=== PATIENT | male | born 1985 ===

== ENCOUNTER 2017-01-05 20:21 | Emergency (ER) | payer OTHER ==
[2017-01-05 20:44] VITALS: BP 117/75; PULSE 85; RESP 20; TEMP 98.3; O2SAT 97
--- NOTE | 2017-01-05 20:58 | C.PDOC ---
History Of Present Illness A 31 year old male, presents to the emergency department requesting a medication refill. The patient states he ran out of his medication today and he went to his pharmacy, but they were closed due to the holiday weekend. The patient is completely asymptomatic and denies any suicidal ideation, homicidal ideation, or any other complaints at this time. Time Seen by Provider: 01/05/17 20:43 Chief Complaint (Nursing): Med Refill History Per: Patient History/Exam Limitations: no limitations Onset/Duration Of Symptoms: Other Past Medical History Vital Signs: Last Vital Signs Temp 98.3 F 01/05/17 20:31 Pulse 85 01/05/17 20:31 Resp 20 01/05/17 20:31 BP 117/75 01/05/17 20:31 Pulse Ox 97 01/05/17 21:06 - Medical History PMH: Seizures Family History: States: No Known Family Hx, Unknown Family Hx - Social History Hx Alcohol Use: No Hx Substance Use: No - Immunization History Hx Tetanus Toxoid Vaccination: No Hx Influenza Vaccination: No Hx Pneumococcal Vaccination: No Review Of Systems Except As Marked, All Systems Reviewed And Found Negative. Constitutional: Negative for: Fever Cardiovascular: Negative for: Chest Pain Respiratory: Negative for: Shortness of Breath Gastrointestinal: Negative for: Abdominal Pain Psych: Negative for: Suicidal ideation Physical Exam - Physical Exam Appears: Well, Non-toxic, No Acute Distress Skin: Normal Color, Warm, Dry Head: Atraumatic, Normacephalic Eye(s): bilateral: Normal Inspection, EOMI Nose: Normal Oral Mucosa: Moist Neck: Normal, Normal ROM, Supple Chest: Symmetrical Cardiovascular: Rhythm Regular Respiratory: Normal Breath Sounds Back: Normal Inspection Extremity: Normal ROM Neurological/Psych: Oriented x3, Normal Speech, Normal Cognition ED Course And Treatment O2 Sat by Pulse Oximetry: 97 Medical Decision Making Medical Decision Making: Treatment Plan: -- Klonopin, Keppra RX bottles evaluated. Pt has 2 refills of medication. Last filled on 12/05/16. Disposition - Disposition Referrals: Vivian Richey [Primary Care Provider] - Disposition: HOME/ ROUTINE Disposition Time: 20:56 Condition: STABLE Prescriptions: clonazePAM [clonAZEPAM] 0.5 mg PO BID #4 tab Levetiracetam [Keppra] 500 mg PO BID #6 tablet Instructions: Medicine Refill (ED) Forms: [facility] (Martiniquais) - Clinical Impression Clinical Impression: Review of medication - Scribe Statement The provider has reviewed the documentation as recorded by the Scribe Mahi Ochoa All medical record entries made by the Scribe were at my direction and personally dictated by me. I have reviewed the chart and agree that the record accurately reflects my personal performance of the history, physical exam, medical decision making, and the department course for this patient. I have also personally directed, reviewed, and agree with the discharge instructions and disposition.
== END 2017-01-05 21:08 | disposition home or self-care (01) ==
LOC: C.ER 20:21 → SUPCPDRO 20:21 → C.ER 21:08
DX: Z51.81 Encounter for therapeutic drug level monitoring (principal)

== ENCOUNTER 2017-08-11 10:07 | Inpatient (IN) | payer MEDICAID, OTHER ==
[2017-08-11 10:23] VITALS: O2SAT 99
[2017-08-11 12:40] LABS: BASO # 0.1 K/uL (0.0-0.2); BASO % 0.9 % (0.0-2.0); EOS # 0.1 K/uL (0.0-0.7); EOS % 1.5 % (0.0-4.0); HEMOGLOBIN 14.5 g/dL (12.0-18.0); LYMPH # 2.8 K/uL (1.0-4.3); LYMPH % 30.8 % (20.0-40.0); MEAN CELL VOLUME 77.6 fL (80.0-94.0); MEAN CORPUSCULAR HEMOGLOBIN 26.4 pg (27.0-31.0); MEAN PLATELET VOLUME 7.3 fL (7.2-11.7); MONO # 0.4 K/uL (0.0-0.8); MONO % 4.5 % (0.0-10.0); NEUT # 5.7 K/uL (1.8-7.0); NEUT % 62.3 % (50.0-75.0); RBC 5.48 Mil/uL (4.40-5.90); RED CELL DISTRIBUTION WIDTH 13.1 % (11.5-14.5); WHITE BLOOD COUNT 9.2 K/uL (4.8-10.8)
--- NOTE | 2017-08-11 12:48 | C.PDOC ---
History Of Present Illness 32 year old male, whose PMHx includes seizures (reports noncompliant with Keppra ), is brought to the ED by ambulance for evaluation after having a seizure this morning. Patient also reports auditory hallucinations and suicidal ideation, stating he has thoughts of hurting himself. Patient denies suicidal plan and is not providing specific details when questioned. He denies tongue biting and urinary/bowel incontinence. Time Seen by Provider: 08/11/17 11:38 Chief Complaint (Nursing): Psychiatric Evaluation History Per: Patient History/Exam Limitations: no limitations Onset/Duration Of Symptoms: Mins Current Symptoms Are (Timing): Better Associated Symptoms: Suicidal Thoughts. denies: Suicidal Plan Involuntary Hold By: None Recent travel outside of the [place]: No Additional History Per: Patient Past Medical History Reviewed: Historical Data, Nursing Documentation, Vital Signs Vital Signs: Last Vital Signs Temp 97.9 F 08/11/17 15:12 Pulse 99 H 08/11/17 15:12 Resp 16 08/11/17 15:12 BP 126/78 08/11/17 15:12 Pulse Ox 99 08/11/17 15:13 - Medical History PMH: Seizures Surgical History: No Surg Hx Family History: States: Unknown Family Hx - Social History Hx Alcohol Use: No Hx Substance Use: No - Immunization History Hx Tetanus Toxoid Vaccination: No Hx Influenza Vaccination: No Hx Pneumococcal Vaccination: No Review Of Systems Genitourinary: Negative for: Incontinence Neurological: Positive for: Seizures Psych: Positive for: Suicidal ideation, Other (auditory hallucinations) Physical Exam - Physical Exam Appears: Non-toxic, No Acute Distress Skin: Normal Color, Warm, Dry Head: Atraumatic, Normacephalic Eye(s): bilateral: Normal Inspection Oral Mucosa: Moist Neck: Supple Chest: Symmetrical, No Deformity, No Tenderness Cardiovascular: Rhythm Regular, No Murmur Respiratory: Normal Breath Sounds, No Rales, No Rhonchi, No Wheezing Extremity: Normal ROM, Capillary Refill (less than 2 seconds ) Neurological/Psych: Oriented x3, Normal Speech, Normal Cognition, Other (flat, bizarre affect) ED Course And Treatment - Laboratory Results Result Diagrams: 08/11/17 12:37 08/11/17 12:37 ECG: Interpreted By Me, Viewed By Me ECG Rhythm: Sinus Rhythm Interpretation Of ECG: Normal Sinus Rhythm at rate 94bpm. Normal intervals. Normal [place]. Isoltated T-wave inversion in lead III. Rate From EC O2 Sat by Pulse Oximetry: 99 (on RA) Pulse Ox Interpretation: Normal Medical Decision Making Medical Decision Making: Assessment: seizure, suicidal ideation, auditory hallucinations Plan: * Bloodwork * Urinalysis * Keppra IVP * reassess and disposition Progress: Bloodwork and urinalysis ordered and reviewed. Keppra IVP administered. Patient placed on one-to-one ED observation. 1446: Patient has been medically cleared. No further seizure activity noted during course of ED stay. Patient was evaluated by Dr. Harris and will be admitted for schizophrenia and seizures. Disposition Discussed With Dr.: Bay Harris Counseled Patient/Family Regarding: Studies Performed, Diagnosis - Disposition Disposition: HOSPITALIZED Disposition Time: 14:51 Condition: FAIR - Clinical Impression Clinical Impression: Schizophrenia, Seizure - Scribe Statement The provider has reviewed the documentation as recorded by the Scribe (Cara Valdez) Provider Attestation: All medical record entries made by the Scribe were at my direction and personally dictated by me. I have reviewed the chart and agree that the record accurately reflects my personal performance of the history, physical exam, medical decision making, and the department course for this patient. I have also personally directed, reviewed, and agree with the discharge instructions and disposition.
[2017-08-11 12:54] LABS: ALB/GLOB RATIO 1.1 (1.0-2.1); ALBUMIN 4.1 g/dL (3.5-5.0); ALT/SGPT 30 U/L (21-72); AST/SGOT 32 U/L (17-59); BLOOD UREA NITROGEN 11 mg/dL (9-20); CALCIUM 9.5 mg/dl (8.6-10.4); GFR AFRICAN-AMERICAN > 60; GFR NON-AFRICAN AMERICAN > 60
[2017-08-11 13:55] LABS: SQUAMOUS EPITHIAL 1 /hpf (0-5); URINE BILIRUBIN NEGATIVE (NEGATIVE); URINE BLOOD NEGATIVE (NEGATIVE); URINE CLARITY Clear (Clear); URINE COLOR Yellow (YELLOW); URINE GLUCOSE (UA) NORMAL (Normal); URINE LEUKOCYTE ESTERASE TRACE Leu/uL (Negative); URINE PROTEIN NEGATIVE (NEGATIVE); URINE UROBILINOGEN NORMAL mg/dL (0.2-1.0)
[2017-08-11 14:26] LABS: BARBITURATES, UR NEGATIVE (NEGATIVE); OPIATES, UR NEGATIVE (NEGATIVE); PHENCYCLIDINE, UR NEGATIVE (NEGATIVE)
[2017-08-11 14:44] LABS: BENZODIAZEPINES, UR POSITIVE (NEGATIVE)
--- NOTE | 2017-08-11 16:41 | PCM.BM ---
<Karley Macdonald - Last Filed: 08/11/17 16:39> Treatment Plan Problems - Problems identified on initial assessmt Depression Date Initiated: 08/11/17 Time Initiated: 15:50 Assessment reference: NA Status: Active (Aud) Auditory Hallucinatios Date Initiated: 08/11/17 Time Initiated: 15:50 Assessment reference: NA Status: Active Treatment assets and liabiliti Patient Assests: cooperative, educated, good past tx response Patient Liabilities: financial problems, relationship conflicts ( from ), medical problems (Epilepsy, Hypertension. ), unable to read/write (Lost his job. ) - Milieu Protocol Maintain good personal hygiene: daily Encourage regular showers, every shift Remind patient to perform daily oral care, every shift Assist patient to perform ADL's Conduct patient checks and document Observation sheet: Q15 minutes (for safety.) Maintain personal safety: every shift Educate patient to report safety concerns to staff, every shift Monitor environment for contraband/sharps Medication safety: Monitor for expected outcome, potential side effects: every shift, Assess barriers to learning: every shift, Assess readiness for medication education: every shift <Bay Harris - Last Filed: 08/13/17 10:50> - Diagnosis (1) Schizophrenia Status: Acute Interventions: 08/13/17 10:50 * Assess/adjust medications daily and /or as needed * See patient on an individual basis 7x/week to assess status of hallucinations * Discuss risks, benefits, side effects and alternatives of medications * <Juana Steele - Last Filed: 08/13/17 11:40> Family Contact Family involvement: Family/SO is involved Family contact: Patient agrees to contact Family contact name: Family contacted how many times per week?: 2 - Goals for Treatment Patient goals for treatment: "I don't know." Patient's family/SO goals for treatment: "He needs medication." Discharge/Continuing Care - Education Needs Education Needs: Patient Medication, Patient Coping Skills - Discharge Discharge Criteria: Tolerates medication w/o severe side effects, Reduction of target symptoms Discharge to:: Home, With Family - Treatment Team Participation Discussed with Family/SO: Yes Was Patient/Family/SO present at Treatment Team Meeting: Yes
[2017-08-11] MEDS ORDERED: DiphenhydrAMINE 50 mg/ml Inj IM PRN (17:05)
--- NOTE | 2017-08-12 10:40 | PCM.PSYCH ---
Initial Psychiatric Evaluation - Initial Psychiatric Evaluation Type of Admission: Voluntary Legal Status: Capacity Chief Complaint (in patient's own words): I was hearing voices to kill myself.' History of Present Illness and Precipitating Events: This is a 32 y/o [place] Make, , currently living with his and 1 years old daughter, came to the ED with AH, telling him to kill himself and suicidal thoughts. According to collateral information obtained from Patient's and sister. Patient has h/o Schizophrenia paranoid type for more than 2 years. He was last discharged from the [facility], last May,. Patient was later screened and transferred to [facility]. As per the collateral he stopped taking his meds last year, soon after discharge. Since past month he is becoming increasingly paranoid and delusional. He has been pacing the floor for the past week and not sleeping for the past 2 days. In addition, patient also reports feeling confused, poor recall and unable to gather his thoughts due to current mental status. He appears very disorganized and internally preoccupied. He reports of hearing voices telling him to kill himself and seeing shadows, visual hallucinations. Patient also reports poor sleep. He remained paranoid, delusional and bizzare. He denies any history of substance abuse or alcohol abuse. PMH: h/o epilepsy, HTN and dislocated shoulder Current Medications: Active Medications Generic Name Dose Route Start Last Admin Trade Name Freq PRN Reason Stop Dose Admin Diphenhydramine HCl 25 mg 08/11/17 17:05 Benadryl IM Q4H PRN dystonia Haloperidol 5 mg 08/11/17 17:05 Haldol PO Q1H PRN agitation max 4x/24h Hydroxyzine HCl 50 mg 08/11/17 17:05 Atarax PO Q6H PRN Anxiety Ibuprofen 600 mg 08/11/17 17:05 Motrin Tab PO Q6H PRN Pain, moderate (4-7) Levetiracetam 500 mg 08/12/17 10:00 08/12/17 09:56 Keppra PO 500 mg BID ADRIENNE Administration Pneumococcal Polyvalent Vaccine 0.5 ml 08/13/17 10:00 Pneumovax 23 Vaccine SC 08/13/17 10:01 .ONCE ONE Trazodone HCl 100 mg 08/11/17 17:05 Desyrel PO HS PRN Insomnia Past Psychiatric History - Past Psychiatric History Previous Treatment History: Inpatient Pertinent Medical Hx (Current Medical&Sleep Prob, Allergies): Allergies Allergy/AdvReac Type Severity Reaction Status Date / Time No Known Allergies Allergy Verified 08/11/17 10:24 Clonazepam [Klonopin] 0.5 mg PO HS 01/05/17 Levetiracetam [Keppra] 500 mg PO BID #6 tablet 01/05/17 Review of Systems - Review of Systems All systems: reviewed and no additional remarkable complaints except - Psychiatric Psychiatric: Anxiety, Hallucinations, Irritability, Paranoia, Suicidal Ideation Mental Status Examination - Personal Presentation Personal Presentation: Looks stated age - Affect Affect: Constricted, Blunted - Motor Activity Motor Activity: Psychomotor Retardation - Reliability in Providing Information Reliability in Providing Information: Poor, due to alteration in thoughts, Poor , due to altered mood - Speech Speech: Disorganized - Mood Mood: Depressed, Anxious - Formal Thought Process Formal Thought Process: Hallucinations, Delusions, Paranoia, Loosening of associations - Hallucinations/Delusions Hallucinations: Visual, Auditory Delusions: Persecution - Obsessions/Compulsions Obsessions: No Compulsions: No - Cognitive Functions Orientation: Person, Place, Situation, Time Sensorium: Alert Attention/Concentration: Attentive Abstract Thinking: [place] Estimate of Intelligence: Below average Judgement: Imparied, as evidence by: Poor judgement, Imparied, as evidence by: Lack of insight into illness - Risk Risk: Suicidal, Diminished functioning - Strength & Assets Inventory Strength & Assets Inventory: Family support DSM 5 DX - DSM 5 DSM 5 Diagnosis: Schizophrenia paranoid type continuous - Recommended/Plan of Treatment Treatment Recommendations and Plan of Treatment: Schizophrenia paranoid type continuous -CBT -Psychoeducation -Supportive therapy, group therapy, individual therapy -Haldol 5 mg by mouth twice a day -Cogentin 1 mg PO BID -Trazodone 100 mg by mouth daily at bedtime Seizure disorder -Keppra 500 mg PO BID HTN -Monitor s/s
--- NOTE | 2017-08-12 17:12 | CARD ---
APPROVED REPORT EKG Measurement Heart [id number] DC [id number] <Conclusion> Normal sinus rhythm Normal ECG
[2017-08-13] MEDS ORDERED: Pneumococcal 23-Valent Vaccine SC ONE (10:00)
--- NOTE | 2017-08-13 10:50 | PCM.PYCHPN ---
Psychiatric Progress Note - Psychiatric Progress Note Patient seen today, length of contact: 15 min Patient Chief Complaint: I am still hearing voices.' Problems Identified/Issues Discussed: Patient seen and evaluated, chart reviewed and discussed with the nurse. Patient remained disorganized and internally preoccupied. He still reports of hearing voices. Patient still appears paranoid and delusional. He reports depressed mood and feelings of hopelessness and helplessness. Patient remained isolated, confined and withdrawn. Patient is compliant with medications and denies any side effects. Symptoms are improving but need more time to stabilize. Support and psychoeducation given. Medication Change: Yes (increase Haldol) Medical Record Reviewed: Yes Mental Status Examination - Cognitive Function Orientation: Person, Place, Situation, Time Memory: Intact Attention: Poor Concentration: Poor Association: Loose Fund of Knowledge: Poor - Mood Mood: Depressed, Anxious - Affect Affect: Constricted, Blunted - Formal Thought Process Formal Thought Process: Hallucinations, Delusions, Paranoia, Loosening of associations - Suicidal Ideation Suicidal Ideation: No - Homicidal Ideation Homicidal Ideation: No Goal/Treatment Plan - Goal/Treatment Plan Need for Continued Stay: Severe depression anxiety, Severe functional impairment Progress Toward Problem(s) and Goals/Treatment Plan: Schizophrenia paranoid type continuous -CBT -Psychoeducation -Supportive therapy, group therapy, individual therapy -Haldol 10 mg by mouth twice a day -Cogentin 1 mg PO BID -Trazodone 100 mg by mouth daily at bedtime -Gabapentin 100 mg PO TID Seizure disorder -Keppra 500 mg PO BID - Smoking Cessation Smoking Cessation Initiated: No
[2017-08-15] MEDS ORDERED: Haloperidol Decanoate 100 mg/ml Inj IM ONE (14:00)
[2017-08-15 15:50] VITALS: PULSE 88
[2017-08-16 06:35] VITALS: BP 110/70; RESP 20; TEMP 97.8
--- NOTE | 2017-08-16 12:59 | PCM.PYCHDC ---
Mental Status Examination - Mental Status Examination Orientation: Person, Place, Situation, Time Memory: Intact Mood: Neutral Affect: Constricted Speech: Soft Attention: WNL Concentration: WNL Association: WNL Fund of Knowledge: WNL Formal Thought Process: No Impairment Description of patient's judgement and insight: good, fair Psychotic Thoughts and Behaviors: denies any AVH Suicidal Ideation: No Current Homicidal Ideation?: No Discharge Summary - Discharge Note Reason for Hospitalization: This is a 32 y/o [place], , currently living with his and 1 years old daughter, came to the ED with AH, telling him to kill himself and suicidal thoughts. According to collateral information obtained from Patient's and sister. Patient has h/o Schizophrenia paranoid type for more than 2 years. He was last discharged from the [facility], last May,. Patient was later screened and transferred to [facility]. As per the collateral he stopped taking his meds last year, soon after discharge. Since past month he is becoming increasingly paranoid and delusional. He has been pacing the floor for the past week and not sleeping for the past 2 days. In addition, patient also reports feeling confused, poor recall and unable to gather his thoughts due to current mental status. He appears very disorganized and internally preoccupied. He reports of hearing voices telling him to kill himself and seeing shadows, visual hallucinations. Patient also reports poor sleep. He remained paranoid, delusional and bizzare. He denies any history of substance abuse or alcohol abuse. Consultations:: List each consultation separately and include: 1. Reason for request. 2. Findings. 3. Follow-up Summary of Hospital Course include:: 1. Description of specific treatment plan utilized for patients during their course of treatmen. 2. Summarize the time- course for resolution of acute symptoms and/or regressed behaviors. 3. Describe issues identified and worked on during hospitalization. 4. Describe medication utilized. 5. Describe medical problems identified and treated. 6. Reassessment of suicide risk Summary of Hospital Course: This is a 32 y/o [place], , currently living with his and 1 years old daughter, came to the ED with AH, telling him to kill himself and suicidal thoughts. According to collateral information obtained from Patient's and sister. Patient has h/o Schizophrenia paranoid type for more than 2 years. He was last discharged from the [facility], last May,. Patient was later screened and transferred to [facility]. As per the collateral he stopped taking his meds last year, soon after discharge. Since past month he is becoming increasingly paranoid and delusional. He has been pacing the floor for the past week and not sleeping for the past 2 days. In addition, patient also reports feeling confused, poor recall and unable to gather his thoughts due to current mental status. He appears very disorganized and internally preoccupied. He reports of hearing voices telling him to kill himself and seeing shadows, visual hallucinations. Patient also reports poor sleep. He remained paranoid, delusional and bizzare. He denies any history of substance abuse or alcohol abuse. PMH: h/o epilepsy, HTN and dislocated shoulder - Diagnosis (1) Schizophrenia Current Visit: Yes Status: Acute - Final Diagnosis (DSM 5) Condition upon Discharge: FAIR Disposition: HOME/ ROUTINE Follow-up Treatment Plan: Schizophrenia paranoid type continuous -CBT -Psychoeducation -Supportive therapy, group therapy, individual therapy -Haldol 10 mg by mouth twice a day -Cogentin 1 mg PO BID -Trazodone 100 mg by mouth daily at bedtime -Gabapentin 100 mg PO TID Seizure disorder -Keppra 500 mg PO BID Prescriptions/Medication Reconciliation: Benztropine [Cogentin] 1 mg PO BID #60 tab Gabapentin [Neurontin] 100 mg PO BID #60 cap Haloperidol [Haldol] 10 mg PO BID #60 tab Levetiracetam [Keppra] 500 mg PO BID #60 tablet traZODone [Desyrel] 100 mg PO HS PRN #30 tab PRN Reason: Insomnia
== END 2017-08-16 14:33 | disposition home or self-care (01) | DRG 430 ==
LOC: C.ER 10:07 → C.5E 14:49
PROVIDERS: ADMIT Psychiatry & Neurology Psychiatry; ATTEND Psychiatry & Neurology Psychiatry
DX: F20.0 Paranoid schizophrenia (principal); R45.851 Suicidal ideations; I10 Essential (primary) hypertension; G40.909 Epilepsy, unspecified, not intractable, without status epilepticus; F41.8 Other specified anxiety disorders